=== PATIENT | female | born 1945 | race Two or more races ===

== ENCOUNTER 2022-05-01 13:16 | Emergency (ER) | payer OTHER ==
[~2022-05-01] VITALS: Ht 147.3 cm; Wt 59.9 kg
[2022-05-01] MEDS ORDERED: SINGULAIR10 MG (13:37)
[2022-05-01] MEDS ORDERED: ZOCOR40 MG (13:37)
[2022-05-01] MEDS ORDERED: ZESTRIL2.5 MG (13:37)
[2022-05-01] MEDS ORDERED: GLIPIZIDE XL5 MG (13:38)
[2022-05-01] MEDS ORDERED: PRILOSEC OTC20 MG (13:38)
[2022-05-01] MEDS ORDERED: FOSAMAX70 MG (13:38)
== END 2022-05-01 18:05 | disposition home or self-care (01) ==
LOC: ER 13:16
DX: J45.901 Unspecified asthma with (acute) exacerbation (principal); E11.9 Type 2 diabetes mellitus without complications; Z79.84 Long term (current) use of oral hypoglycemic drugs